=== PATIENT | female | born 1960 ===

== ENCOUNTER 2017-12-20 23:42 | Emergency (ER) | payer MEDICARE, OTHER ==
[2017-12-20 23:43] VITALS: BMI 27.3
[2017-12-20 23:51] VITALS: BP 149/84; PULSE 83; RESP 18; O2SAT 100
--- NOTE | 2017-12-21 00:31 | ED PDOC ---
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 Patient reports being evaluated at [facility] for rash to right upper back, which has improved on its on, but reports pain ongoing. Patient also notes pain to bilateral ribs and upper abdomen, worse with movement and when coughing. Patient states she was coughing at onset of symptoms but has since improved. Denies fever, nausea/vomiting, shortness of breath, palpitations, changes in bowel movements, urinary symptoms, recent travel. Past Medical History Reviewed: Historical Data, Nursing Documentation, Vital Signs Vital Signs: Last Vital Signs Temp 98.0 F 12/20/17 23:47 Pulse 83 12/20/17 23:47 Resp 18 12/20/17 23:47 BP 149/84 12/20/17 23:47 Pulse Ox 100 12/20/17 23:47 - Medical History PMH: Diabetes, HTN, Hypercholesterolemia, Kidney Stones, Chronic Kidney Disease - Surgical History Surgical History: No Surg Hx - Family History Family History: States: Unknown Family Hx - Living Arrangements Living Arrangements: With Family - Social History Current smoker - smoking cessation education provided: No Alcohol: None Drugs: Denies - Immunization History Hx Tetanus Toxoid Vaccination: No Hx Influenza Vaccination: Yes Hx Pneumococcal Vaccination: No - Home Medications Home Medications: Ambulatory Orders Medication Instructions Recorded Rosuvastatin Calcium [Crestor] 10 mg PO HS 09/22/14 metFORMIN [glucOPHAGE] 500 mg PO DAILY 02/21/16 Multivitamin [Multi-Vitamin Daily] 1 each PO DAILY 12/08/16 Aspirin 81 mg PO DAILY 08/07/17 Cholecalciferol [Vitamin D] 2,000 unit PO DAILY 08/07/17 Enalapril Maleate [Vasotec] 2.5 mg PO DAILY 08/07/17 DiphenhydrAMINE [Benadryl] 25 mg PO QID #14 cap 12/15/17 predniSONE [Prednisone] 40 mg PO DAILY #10 tab 12/15/17 Cyclobenzaprine [Cyclobenzaprine 10 mg PO HS PRN #10 tab 12/21/17 HCl] Naproxen [Naprosyn] 500 mg PO Q12 PRN #20 tablet 12/21/17 - Allergies Allergies/Adverse Reactions: Allergies Allergy/AdvReac Type Severity Reaction Status Date / Time No Known Allergies Allergy Verified 12/20/17 23:47 Review of Systems ROS Statement: Except As Marked, All Systems Reviewed And Found Negative Gastrointestinal: Positive for: Abdominal Pain Musculoskeletal: Positive for: Back Pain Physical Exam - Reviewed Nursing Documentation Reviewed: Yes Vital Signs Reviewed: Yes - Physical Exam Appears: Positive for: Well, Non-toxic, No Acute Distress Head Exam: Positive for: ATRAUMATIC, NORMAL INSPECTION, NORMOCEPHALIC Skin: Positive for: Normal Color Eye Exam: Positive for: Normal appearance ENT: Positive for: Normal ENT Inspection Cardiovascular/Chest: Positive for: Regular Rate, Rhythm. Negative for: Chest Non Tender (tender to palpate bilateral anterior inferior ribs; no edema, ecchymosis noted) Respiratory: Positive for: Normal Breath Sounds Gastrointestinal/Abdominal: Positive for: Bowel Sounds, Soft, Tenderness (ruq, epigastric, luq). Negative for: Distended, Guarding, Rebound Back: Positive for: Normal Inspection, Muscle Spasm (tender to palpate right upper back; hyperpigmented rash noted to area; no lesions, vesicles noted). Negative for: L CVA Tenderness, R CVA Tenderness, Vertebral Tenderness, Decreased ROM Extremity: Positive for: Normal ROM Neurologic/Psych: Positive for: Alert, Oriented (x3) - Laboratory Results Result Diagrams: 12/21/17 00:47 12/21/17 00:47 - ECG ECG: Positive for: Viewed By Me (reviewed by ED attending) ECG Rhythm: Positive for: Sinus Rhythm O2 Sat by Pulse Oximetry: 100 - Radiology X-Ray: Viewed By Me X-Ray Interpretation: No Acute Disease - Progress ED Course And Treament: labs, ekg, chest xray, IV toradol On re-eval, patient states pain improved Patient educated on findings via interpreter and translator [id number] and plan to discharge with prescriptions for pain relief. Patient was advised to follow up with PMD in 2-3 days. Rx naproxen, flexeril provided Return precautions given Disposition - Clinical Impression Clinical Impression: Abdominal pain, Upper back pain on right side, Chest wall pain - Patient ED Disposition Is Patient to be Admitted: No Counseled Patient/Family Regarding: Studies Performed, Diagnosis, Need For Followup, Rx Given - Disposition Referrals: Kamron Travis MD [Primary Care Provider] - Disposition: Routine/Home Disposition Time: 02:08 Condition: IMPROVED Prescriptions: Cyclobenzaprine [Cyclobenzaprine HCl] 10 mg PO HS PRN #10 tab PRN Reason: Muscle Spasm Naproxen [Naprosyn] 500 mg PO Q12 PRN #20 tablet PRN Reason: Pain, Moderate (4-7) Instructions: Muscle and Bone Pain (DC)
[2017-12-21 00:59] LABS: BASO # 0.1 K/uL (0.0-0.2); BASO % 0.8 % (0.0-2.0); EOS # 0.2 K/uL (0.0-0.7); EOS % 1.8 % (0.0-4.0); HEMOGLOBIN 11.7 g/dL (12.0-16.0); LYMPH % 45.6 % (20.0-40.0); MEAN CELL VOLUME 85.6 fl (81.0-99.0); MEAN CORPUSCULAR HEMOGLOBIN 28.2 pg (27.0-31.0); MEAN CORPUSCULAR HGB CONC 32.9 g/dL (33.0-37.0); MEAN PLATELET VOLUME 8.1 fl (7.2-11.7); MONO # 0.7 K/uL (0.0-0.8); MONO % 5.9 % (0.0-10.0); NEUT # 5.1 K/uL (1.8-7.0); NEUT % 45.9 % (50.0-75.0); NRBC % 0.1 % (0.0-0.0); RBC 4.15 Mil/uL (3.80-5.20); RED CELL DISTRIBUTION WIDTH 14.3 % (11.5-14.5); WHITE BLOOD COUNT 11.1 K/uL (4.8-10.8)
[2017-12-21 01:07] LABS: ALB/GLOB RATIO 1.4 (1.0-2.1); ALBUMIN 4.3 g/dL (3.5-5.0); ALT/SGPT 25 U/L (9-52); AST/SGOT 19 U/L (14-36); BLOOD UREA NITROGEN 16 mg/dl (7-17); CALCIUM 9.9 mg/dL (8.4-10.2); GFR AFRICAN-AMERICAN > 60; GFR NON-AFRICAN AMERICAN > 60; LIPASE 216 U/L (23-300)
[2017-12-21 02:55] VITALS: TEMP 98
--- NOTE | 2017-12-21 11:33 | RAD ---
HISTORY: COMPARISON: 09/26/2014. TECHNIQUE: Chest PA and lateral FINDINGS: LINES AND TUBES: None. LUNG AND PLEURA: The lungs are well inflated and clear. No pleural effusion or pneumothorax. HEART AND MEDIASTINUM: The heart is not enlarged. The hilar and mediastinal contours are within normal limits. SKELETAL STRUCTURES: The bony structures are within normal limits for the patient's age. VISUALIZED UPPER ABDOMEN: Normal. OTHER FINDINGS: None. IMPRESSION: No active pulmonary disease.
--- NOTE | 2017-12-21 13:24 | CARD ---
APPROVED REPORT Date of service: 12/20/2017 EKG Measurement Heart [id number] <Conclusion> Normal sinus rhythm Normal ECG
== END 2017-12-21 02:45 | disposition home or self-care (01) ==
LOC: H.ER 23:42
DX: R10.9 Unspecified abdominal pain (principal); M54.9 Dorsalgia, unspecified; R07.89 Other chest pain; E78.00 Pure hypercholesterolemia, unspecified; I12.9 Hypertensive chronic kidney disease with stage 1 through stage 4 chronic kidney disease, or unspecified chronic kidney disease; Z79.84 Long term (current) use of oral hypoglycemic drugs; H91.3 Deaf nonspeaking, not elsewhere classified
CPT/HCPCS: 71046; 80053; 81025; 82948; 83690; 84484; 85025; 87086; 93005; 99283; J1885